=== PATIENT | male | born 1985 | race Hispanic/Latino ===

== ENCOUNTER 2020-07-26 13:02 | Emergency (ER) | payer SELFPAY ==
[2020-07-26 14:05] LABS: Hemoglobin 13.6 g/dL (14.0-18.0); Mean Corpuscular HGB CONC 33.9 g/dL (32.0-36.0); Mean Corpuscular Hemoglobin 29.9 pg (27.0-31.0); Mean Corpuscular Volume 88.3 fL (78.0-98.0); Mean Platelet Volume 7.5 fL (7.4-10.4); Platelet Count 293 thou/uL (130-400); RBC Distribution Width 11.2 % (11.5-14.5); Red Blood Cell (RBC) Count 4.53 mill/uL (4.70-6.10); White Blood Cell (WBC) Count 7.2 thou/uL (4.8-10.8)
[2020-07-26 14:15] LABS: Prothrombin Time 13.2 sec (12.0-14.7)
[2020-07-26 14:16] LABS: PTT 32.4 sec (22.9-36.1)
[2020-07-26 14:28] LABS: Band 9 % (5-11); Eosinophils 9 % (0-10); Lymphocytes 22 % (21-51); MDiff Complete? YES; Monocytes 14 % (0-10); Myelocyte 1 % (0-0); Neutrophil 45 % (42-75); Platelet Morphology Comment Appears Adequate; Polychromasia SLIGHT = 2-3 cells (100X) (0-2/hpf)
[2020-07-26 14:28] LABS: ALT (SGPT) 35 U/L (8-55); AST (SGOT) 19 U/L (5-34); Albumin 4.2 g/dL (3.5-5.0); Alkaline Phosphatase 60 U/L (40-110); Anion Gap 15 mmol/L (10-20); BUN (Urea Nitrogen) 10 mg/dL (8.9-20.6); Bilirubin, Total 0.3 mg/dL (0.2-1.2); Calc. Creatinine Clearance 0 mL/min (70-130); Calcium 9.3 mg/dL (7.8-10.44); Carbon Dioxide 24 mmol/L (22-29); Chloride 102 mmol/L (98-107); Globulin 3.9 g/dL (2.4-3.5); Glucose 134 mg/dL (70-105); Potassium 4.3 mmol/L (3.5-5.1); Protein, Total 8.1 g/dL (6.0-8.3); Sodium 137 mmol/L (136-145)
[2020-07-26] MEDS ORDERED: Ibuprofen 200 MG TAB ONE (17:03)
== END 2020-07-26 17:23 | disposition home or self-care (01) ==
LOC: ERS 13:02
DX: L03.116 Cellulitis of left lower limb (principal); F17.210 Nicotine dependence, cigarettes, uncomplicated
CPT/HCPCS: 36415; 80053; 85025; 85610; 85730

== ENCOUNTER 2021-03-04 19:03 | Emergency (ER) | payer OTHER, SELFPAY ==
[2021-03-04] MEDS ORDERED: Rabies Vaccine Human 2.5 UNITS VIAL IM ONE (22:00)
[2021-03-04] MEDS ORDERED: Bacitracin 1 PK ONE (23:03)
== END 2021-03-04 23:10 | disposition home or self-care (01) ==
LOC: ERS 19:03
DX: S61.451A Open bite of right hand, initial encounter (principal); S31.825A Open bite of left buttock, initial encounter; F17.210 Nicotine dependence, cigarettes, uncomplicated; W54.0XXA Bitten by dog, initial encounter
CPT/HCPCS: 90376; 90471; 90675; 96372

== ENCOUNTER → 2021-03-07 | Day surgery (SDC) | payer SELFPAY ==
[~2021-03-07] MED LIST: Rabies Vaccine Human 2.5 UNITS VIAL IM ONE
== END ==
LOC: ER/OP 09:00
DX: Z23 Encounter for immunization (principal)
CPT/HCPCS: 90471; 90675

== ENCOUNTER → 2021-03-14 | Day surgery (SDC) | payer BC, SELFPAY | LOC: ERS 08:01 → ER/OP 08:01 → EDSTATUS 08:36 | DX: Z23 Encounter for immunization (principal); F17.210 Nicotine dependence, cigarettes, uncomplicated | CPT/HCPCS: 90471; 90675 ==

== ENCOUNTER → 2021-03-28 | Day surgery (SDC) | payer BC, SELFPAY | LOC: ER/OP 08:24 | PROVIDERS: ATTEND Emergency Medicine | DX: Z23 Encounter for immunization (principal) | CPT/HCPCS: 90471; 90675 ==